=== PATIENT | female | born 1975 | race Asian ===

== ENCOUNTER 2018-08-31 14:08 | Emergency (ER) | payer OTHER ==
[2018-08-31 14:19] VITALS: BP 142/94
[2018-08-31] MEDS ORDERED: AMOX/CLAV 875 MG/125 MG TABLET PO STA (15:13)
--- NOTE | 2018-08-31 15:15 | ED Physician Documentation ---
PD HPI LOWER EXT INJURY - Stated complaint Stated Complaint: DOG BITE - Chief complaint Chief Complaint: Laceration - History obtained from History obtained from: Patient - History of Present Illness PD HPI LOW EXT INJURY LOCATION: Right, Lower leg Type of injury: Other (The patient was bit by dog on her leg through her pants.) Where injury occurred: [place] - onset: Today Timing - details: Abrupt onset Severity Comments: Mild Improved by: Rest Worsened by: Moving Associated symptoms: No: Weakness, Numbness, Tingling, Swelling, Discolored Contributing factors: No: Anticoagulated Similar symptoms before: Has not had sx before Recently seen: Not recently seen Review of Systems Constitutional: denies: Fever, Chills Eyes: denies: Discharge Skin: reports: Bite / sting Neurologic: denies: Generalized weakness Immunocompromised: denies: Chemotherapy PD PAST MEDICAL HISTORY - Present Medications Home Medications: Ambulatory Orders Medication Instructions Recorded Confirmed Amox/Clav 875/125 [Augmentin] 1 each PO Q12H #10 tablet 08/31/18 - Allergies Allergies/Adverse Reactions: Allergies Allergy/AdvReac Type Severity Reaction Status Date / Time No Known Drug Allergies Allergy Verified 08/31/18 15:30 PD ED PE NORMAL - General General: Alert and oriented X 3, No acute distress - HEENT HEENT: Atraumatic, PERRL, EOMI, Ears normal - Cardiac Cardiac: RRR, Strong equal pulses - Respiratory Respiratory: No respiratory distress - Derm Derm: Other (There is evidence of a dog bite on the lateral lower leg. The skin is broken. There is no surrounding cellulitis. There is surrounding ecchymosis. There is no area that would require laceration repair) - Neuro Neuro: Alert and oriented X 3, Normal speech Results - Vitals Vitals: Vital Signs - 24 hr 08/31/18 14:15 Temperature 36.8 C Heart Rate 88 Respiratory 16 Rate Blood Pressure 142/94 H O2 Saturation 100 Oxygen O2 Source Room air PD MEDICAL DECISION MAKING - ED course ED course: The dog was on a leash, the dog is not known to the family. However, there is no rabies in this area. The patient will be put on a course of antibiotics for the dog bite. The patient appears appropriate for discharge and ongoing outpatient management. The patient's tetanus is up-to-date. I discussed warning signs and recommended returning to the emergency department for any worsening or any concerns. Departure - Departure Disposition: Home, Self Care Clinical Impression: Dog bite Qualifiers: Encounter type: initial encounter Qualified Code(s): W54.0XXA - Bitten by dog, initial encounter Instructions: ED Bite Animal General, ED Animal Bite Ch Follow-Up: [facility] [Provider Group] - Within 1 week Prescriptions: Amox/Clav 875/125 [Augmentin] 1 each PO Q12H #10 tablet Comments: Please return for worsening symptoms or any concerns.
== END 2018-08-31 15:52 | disposition home or self-care (01) ==
LOC: ED 14:08
DX: S81.851A Open bite, right lower leg, initial encounter (principal); W54.0XXA Bitten by dog, initial encounter
CPT/HCPCS: 99283; A9270

== ENCOUNTER 2021-06-12 09:31 | Outpatient (CLI) | payer OTHER ==
--- NOTE | 2021-06-12 17:17 | MRI Report ---
PROCEDURE: Knee RT W/O INDICATIONS: PAIN IN RIGHT KNEE TECHNIQUE: Noncontrast sagittal PD fast spin echo and T2 fast spin echo with fat saturation, sagittal 3-D gradie nt sequence with fat saturation; coronal T1 spin echo and PD fast spin echo with fat saturation, and axial PD fast spin echo with fat saturation through the knee. COMPARISON: None. FINDINGS: Menisci: Medial meniscus: Intact. Lateral meniscus: Intact. Cruciate ligaments: Anterior cruciate ligament: Intact. Posterior cruciate ligament: Intact. Medial structures: The medial collateral ligament appears intact. The semimembranosus tendon appears intact. Visualized portions of the pes anserinus tendons appear normal. No abnormal bursal fluid. Lateral structures: Lateral collateral ligament appears grossly intact. Biceps femoris tendon appears intact. Iliotibial band within normal limits. Popliteus tendon within normal limits. Anterior structures: Mild patellar tendinopathy, with prepatellar and superficial infrapatellar edema. The quadriceps tendon appears intact. Medial and lateral patellofemoral ligaments appear grossly intact. Patellar alignment is normal. Hoffa's fat pad unremarkable. Bones and cartilage: Bones: No bone marrow contusions or fractures. Medial compartment: Cartilage intact. Lateral compartment: Cartilage intact. Patellofemoral compartment: Near full-thickness loss of the cartilage overlying the medial patellar f acet and median patellar ridge. There is underlying subchondral marrow edema. Joint space: No joint effusion. No Golden?s cyst. No specific evidence of loose body identified. IMPRESSION: Proximal patellar tendinopathy with adjacent fluid/edema. 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 Associated underlying subchondral marrow edema. Reviewed by: Sid Betancourt MD on 06/12/2021 5:15 PM PDT Approved by: Sid Betancourt MD on 06/12/2021 5:15 PM PDT Station ID: [id number]
== END 2021-06-12 09:32 | disposition home or self-care (01) ==
LOC: DI 09:31
PROVIDERS: ATTEND Nurse Practitioner Family
DX: M94.261 Chondromalacia, right knee (principal); M67.961 Unspecified disorder of synovium and tendon, right lower leg

== ENCOUNTER 2022-04-24 08:43 | Emergency (ER) | payer OTHER ==
[2022-04-24 10:37] LABS: BILIRUBIN,URINE NEGATIVE (NEGATIVE); GLUCOSE, URINE (UA) NEGATIVE (NEGATIVE); KETONES,URINE (UA) NEGATIVE (NEGATIVE); LEUKOCYTE ESTERASE, URINE NEGATIVE (NEGATIVE); NITRITE,URINE NEGATIVE (NEGATIVE); OCCULT BLOOD,URINE LARGE (NEGATIVE); PH,URINE 6.5 PH (5.0-7.5); PROTEIN,URINE NEGATIVE (NEGATIVE); UROBILINOGEN,URINE 0.2 (NORMAL) E.U./dL (NORMAL)
[2022-04-24 10:41] LABS: CLARITY,URINE SL. CLOUDY (CLEAR); HCG UR QUAL NEGATIVE
[2022-04-24 10:46] LABS: RBC,URINE TNTC /HPF (0-5); SQUAMOUS EPITHELIAL CELL,UR RARE Squamous (<= Few)
[2022-04-24 10:47] LABS: BACTERIA,URINE Rare /HPF (None Seen)
--- NOTE | 2022-04-24 10:59 | ED Physician Documentation ---
History of Present Illness - Stated complaint Stated Complaint: SOA/BACK PX - Chief complaint Chief Complaint: Abd Pain - History obtained from History obtained from: Patient - Additonal information Additional information: The patient comes to the emergency department chief complaint of upper abdominal pain and fullness. She states that this is been going on since yesterday morning though she has had episodes like this before. She states the pain radiates to her upper back around the same area. She states more in the left than the right but she feels it all across her abdomen. It is worse if she takes a deep breath. Patient denies any history of ulcers or gallbladder disease. No family history gallbladder disease. Patient states that she is otherwise healthy. She does not find any worsening of the symptoms with food. She denies any other complaints at this time. Review of Systems Ten Systems: 10 systems reviewed and negative Constitutional: reports: Reviewed and negative Eyes: reports: Reviewed and negative Ears: reports: Reviewed and negative Nose: reports: Reviewed and negative Throat: reports: Reviewed and negative Cardiac: reports: Reviewed and negative Respiratory: reports: Reviewed and negative GI: reports: Abdominal Pain. denies: Nausea, Vomiting : reports: Reviewed and negative Skin: reports: Reviewed and negative Musculoskeletal: reports: Reviewed and negative Neurologic: reports: Reviewed and negative Psychiatric: reports: Reviewed and negative Endocrine: reports: Reviewed and negative Immunocompromised: reports: Reviewed and negative PD PAST MEDICAL HISTORY - Past Surgical History Past Surgical History: No - Present Medications Home Medications: Ambulatory Orders Medication Instructions Recorded Confirmed Amox/Clav 875/125 [Augmentin] 1 each PO Q12H #10 tablet 08/31/18 - Allergies Allergies/Adverse Reactions: Allergies Allergy/AdvReac Type Severity Reaction Status Date / Time No Known Drug Allergies Allergy Verified 04/24/22 08:56 - Social History Does the pt smoke?: No Smoking Status: Never smoker Does the pt drink ETOH?: Yes Does the pt have substance abuse?: No - Immunizations Immunizations are current?: Yes - POLST Patient has POLST: No PD ED PE NORMAL - Vitals Vital signs reviewed: Yes - General General: Alert and oriented X 3, No acute distress, Well developed/nourished - HEENT HEENT: Atraumatic, PERRL, EOMI, Moist mucous membranes - Neck Neck: Supple, no meningeal sign - Cardiac Cardiac: RRR, No murmur, Strong equal pulses - Respiratory Respiratory: No respiratory distress, Clear bilaterally - Abdomen Abdomen: Soft, Non tender, Non distended - Back Back: No spinal TTP, Other (Tenderness palpation over left CVA which seems to be more muscular in nature) - Derm Derm: Normal color, Warm and dry, No rash - Extremities Extremities: No deformity - Neuro Neuro: Alert and oriented X 3, car sweeper 2-12 intact, Normal speech, Other (Grossly intact) - Psych Psych: Normal mood, Normal affect Results - Vitals Vitals: Oxygen O2 Source Room air - EKG (time done) 0857 Rate: Rate (enter#) (80) Rhythm: NSR [place]: Normal Intervals: Normal UT QRS: Normal Ischemia: Normal ST segments Compare to prior EKG: Old EKG unavailable Computer interpretation: Agree with computer - Labs Labs: Laboratory Tests 04/24/22 04/24/22 10:26 11:02 Sodium 141 Potassium 4.6 Chloride 105 Carbon Dioxide 26 Anion Gap 10.0 BUN 9 Creatinine 0.6 Estimated GFR (MDRD) 107 Glucose 108 H Calcium 9.2 Total Bilirubin 0.9 AST 18 ALT 15 Alkaline Phosphatase 40 L Total Protein 7.2 Albumin 4.2 Globulin 3.0 Albumin/Globulin Ratio 1.4 Lipase 28 Urine Color LT RED Urine Clarity SL. CLOUDY Urine pH 6.5 Ur Specific [place] 1.010 Urine Protein NEGATIVE Urine Glucose (UA) NEGATIVE Urine Ketones NEGATIVE Urine Occult Blood LARGE H Urine Nitrite NEGATIVE Urine Bilirubin NEGATIVE Urine Urobilinogen 0.2 (NORMAL) Ur Leukocyte Esterase NEGATIVE Urine RBC TNTC H Urine WBC 4-5 Ur Squamous Epith Cells RARE Squamous Urine Bacteria Rare Ur Microscopic Review INDICATED Urine Culture Comments NOT INDICATED Urine HCG, Qual NEGATIVE - Rads (name of study) abd US Radiology: Final report received, See rad report (neg) PD MEDICAL DECISION MAKING - ED course Complexity details: reviewed results, re-evaluated patient, considered differential, d/w patient ED course: Pt was given ibuprofen in the ED. Labs, EKG and abd US were negative. I suspect musculoskeletal pain. We have also discussed f/u with PCP for consideration of endoscopy. Departure - Departure Disposition: 01 Home, Self Care Clinical Impression: Back pain Qualifiers: Back pain location: thoracic back pain Chronicity: acute Back pain laterality: left Qualified Code(s): M54.6 - Pain in thoracic spine Condition: Stable Instructions: ED Neck Back Pain General Comments: Your labs and ultrasound look good, as does your EKG. There is no evidence of a serious condition at this time. Most likely, the source of your pain is muscular, stemming from the muscles of your mid back and chest wall. If you continue to have a feeling of fullness in your stomach, then you should talk to your doctor about potentially getting set up for an endoscopy. You may take ibuprofen and Tylenol to help with the muscular discomfort. You may also use heat and ice as needed. Please schedule follow-up appointment with your doctor if you are not feeling better by the end of the weekend. Discharge Date/Time: 04/24/22 12:12
[2022-04-24] MEDS ORDERED: IBUPROFEN 600 MG TABLET PO STA (11:05)
[2022-04-24] MEDS ORDERED: ACETAMINOPHEN 325 MG TABLET PO STA (11:05)
[2022-04-24 11:20] LABS: ALBUMIN 4.2 g/dL (3.2-5.5); ALBUMIN/GLOBULIN RATIO 1.4 (1.0-2.2); BILIRUBIN,TOTAL 0.9 mg/dL (0.2-1.0); CALCIUM 9.2 mg/dL (8.5-10.3); CREATININE 0.6 mg/dL (0.4-1.0); POTASSIUM 4.6 mmol/L (3.5-5.0); TOTAL PROTEIN 7.2 g/dL (6.7-8.2)
[2022-04-24 12:08] VITALS: BP 125/93
--- NOTE | 2022-04-24 12:33 | Ultrasound Report ---
PROCEDURE: Abdomen Limited INDICATIONS: upper abd pain/fullness TECHNIQUE: Real-time scanning was performed of the abdominal and retroperitoneal organs, with image documentatio n. COMPARISON: None. FINDINGS: Liver: The liver demonstrates diffusely increased echotexture without focal abnormalities which is c onsistent with chronic hepatocellular disease/hepatic steatosis.. Gallbladder: Gallbladder is normal in appearance without gallstones, gallbladder wall thickening, or pericholecystic fluid. Negative sonographic Adam's sign. Biliary ducts: Intrahepatic bile ducts are non-dilated. Extrahepatic bile duct caliber measures 6 m m. Normal is 6-7 mm or less in diameter, or 10 mm or less post-cholecystectomy. Pancreas: Visualized portions of the pancreas are sonographically normal. Spleen: Spleen is normal in size and homogeneous in echotexture. Kidneys: Right kidney is normal in size and echotexture. Right kidney measures 9.7 cm long; no hydro nephrosis or nephrolithiasis. No solid masses. Miscellaneous: No free abdominal fluid. IMPRESSION: Diffuse hepatic steatosis. Otherwise, no acute abnormalities identified in the abdomen. Reviewed by: Kartik Desai MD on 04/24/2022 12:32 PM PDT Approved by: Kartik Desai MD on 04/24/2022 12:32 PM PDT Station ID: [id number]
== END 2022-04-24 12:12 | disposition home or self-care (01) ==
LOC: ED 08:43
DX: M54.6 Pain in thoracic spine (principal)
CPT/HCPCS: 36415; 76705; 80053; 81001; 81025; 83690; 93005; 99282; 99283; A9270; 81003; 87086

== ENCOUNTER 2023-01-17 09:53 | Outpatient (CLI) | payer OTHER ==
[~2023-01-17 09:53] MED LIST: GADOBUTROL 7.5 MMOL/7.5 ML VIAL ONE
[2023-01-17] MEDS ORDERED: GADOBUTROL 7.5 MMOL/7.5 ML VIAL IVP ONE (11:32)
--- NOTE | 2023-01-17 12:50 | MRI Report ---
PROCEDURE: PELVIS W/WO INDICATIONS: SUBSEROSAL LEIOMYOMA CONTRAST: GADAVIST 5.9ML TECHNIQUE: Coronal ultra fast SE, sagittal T2 FSE, axial T1 FSE, axial and coronal nonbreath-hold T2 FSE. Axial dynamic ultra fast GE during administration of contrast. Post-contrast axial and coronal ultra fast GE / 2-D spoiled GE with fat saturation from the iliac crests to the symphysis. Optional diffusion weighted imaging and ADC may be performed. COMPARISON: No comparisons. FINDINGS: Image quality: Excellent. Report organs: Uterus is anteverted and anteflexed. Nabothian cysts are present. Initial stripe measu res 9 mm. Along the anterior, mid to lower uterine segment, there is a 5.0 x 4.8 cm intramural fibroi d which demonstrates enhancement and displaces the endometrial stripe, with an approximate 2.4 cm sub mucosal interface. Along the inferior surface of the uterine fundus, the junctional zone is thickened, and indistinct, m easuring 16 mm. Bowel and peritoneum: No pathologic free pelvic fluid. Inferior colon and small bowel loops are nor mal in caliber. Genitourinary system: Bladder wall is normal in thickness. Distal ureters are non distended. Nodes and vessels: No pathologic pelvic or inguinal adenopathy by size criteria. Iliac vessels are normal in caliber. Soft tissues: No inguinal hernias. Bones: Marrow is normal in overall signal. IMPRESSION: 5.0 x 4.8 cm intramural fibroid with a 2.4 cm some mucosal interface. The fibroids demonstrate enhanc ement. The junctional zone of the fundus is thickened, measuring 16 mm. Findings may indicate adenomyosis. Reviewed by: Rivera Parra on 01/17/2023 12:49 PM PDT Approved by: Rivera Parra on 01/17/2023 12:49 PM PDT Station ID: [id number]
== END 2023-01-17 09:54 | disposition home or self-care (01) ==
LOC: DI 09:53
PROVIDERS: ATTEND Nurse Practitioner Family
DX: D25.1 Intramural leiomyoma of uterus (principal)
CPT/HCPCS: 72197; A9585